=== PATIENT | female | born 2005 | race Caucasian/White ===

== ENCOUNTER 2025-03-04 04:06 | Emergency (ER) | payer SELFPAY ==
[2025-03-04 04:07] VITALS: BP 119/85; PULSE 75; RESP 20; TEMP 36.1; O2SAT 96
--- NOTE | 2025-03-04 04:12 | ED.SKABFB ---
HPI - Skin/Abscess/Foreign Bdy General Chief complaint: Skin/Abscess/Foreign Body Stated complaint: allergic reaction Time Seen by Provider: 03/04/25 04:11 Source: patient Mode of arrival: ambulatory Limitations: no limitations History of Present Illness HPI narrative: Patient is a 19-year-old female with generalized but small size amount of rash and hive since new addition of Lamictal. She was worried about the rash and wanted evaluation. She has an appointment today with the psychiatrist. MD complaint: rash Onset (ago): day(s) ( Three) Location: generalized Severity: mild Severity scale (1-10): 3 Quality: pruritic Pain Consistency: intermittent Relieving factors: none Exacerbating factors: none Context: new medication ( Lamictal) Associated symptoms: itching Treatments prior to arrival: none Related Data Home Medications ?Medication ?Instructions ?Recorded ?Confirmed ?Last Taken ?Type lamotrigine 25 mg tablet mg 03/04/25 Unknown History Allergies Allergy/AdvReac Type Severity Reaction Status Date / Time ceftriaxone (From Rocephin) Allergy Hives Verified 03/04/25 04:24 Review of Systems Review of Systems: All systems reviewed & are unremarkable except as noted in HPI and below Constitutional: Constitutional: Reports no additional constitutional complaints Eyes: Eyes: Reports no additional eye complaints ENT: Reports system reviewed and no additional complaints, except as documented Cardiovascular: Cardiovascular: Reports no additional cardiovascular complaints Respiratory: Respiratory: Reports no additional respiratory complaints Gastrointestinal: Gastrointestinal: Reports no additional gastrointestinal complaints Genitourinary: Genitourinary: Reports no additional female genitourinary complaints Musculoskeletal: Musculoskeletal: Reports no additional musculoskeletal complaints Integumentary/Breasts: Skin/Breast: Reports system reviewed and no additional complaints, except as docu Neurologic: Reports system reviewed and no additional complaints, except as documented Psychiatric: Psychiatric: Reports no additional psychiatric complaints Endocrine: Endocrine: Reports no additional endocrine complaints Hematologic/Lymphatic: Hematologic/Lymphatic: Reports no additional hematologic/lymphatic complaints Allergic/Immunologic: Allergic/Immunologic: Reports no additional allergic/immunologic complaints Exam Const: General: healthy appearing Nutritional Appearance: well nourished Orientation/consciousness: patient oriented x3 HENMT: Head: normal to inspection Ears: external ears normal Face/Nose/Sinus: Normal external nose present Eyes: Conjunctivae: conjunctivae normal Pupils: Equal, round and reactive pupils present EOM: EOMs intact bilaterally Neck: Neck: normal visual inspection Chest: Chest palpation & inspection: normal inspection of the chest Resp: Effort & Inspection: normal respiratory effort and not labored Auscultation: clear to auscultation bilaterally and no crackles Cardio: Rate: regular rate Rhythm: regular rhythm Heart sounds: no murmurs GI: Inspection: non-distended GI Palp: Yes Soft to palpation and No Tenderness to palpation present (GI) Auscultation: normal bowel sounds : General: Yes bladder normal to palpation Back/Spine/Pelvis: Back: no CVA tenderness Skin: General skin exam: normal color Rashes: rash noted Wounds: no wounds Other: generalized arms and legs and right armpit have small areas of patchy erythema and excoriation with swelling tissue and some macular papular areas Neuro: General: patient oriented x3, moves all extremities, no meningeal signs, no focal motor deficits and CN's II-XI intact bilaterally Extrem: General: normal to inspection and no clubbing, cyanosis or edema Psych: Mental Status: mental status grossly normal Affect: normal affect Attitude: cooperative Course Vital Signs Vital signs: Vital Signs Temperature 36.1 C L 03/04/25 04:07 Pulse Rate 75 03/04/25 04:07 Respiratory Rate 20 03/04/25 04:07 Blood Pressure 119/85 03/04/25 04:07 Pulse Oximetry 96 03/04/25 04:07 Oxygen Delivery Room Air 03/04/25 04:07 Temperature 36.1 C L 03/04/25 04:07 Pulse Rate 75 03/04/25 04:07 Respiratory Rate 20 03/04/25 04:07 Blood Pressure 119/85 03/04/25 04:07 Pulse Oximetry 96 03/04/25 04:07 Oxygen Delivery Room Air 03/04/25 04:07 MDM - Skin/Abscess/Foreign Bdy MDM Narrative Medical decision making narrative: patient is a 19-year-old female with generalized rash secondary to recent Lamictal addition. She will talk to the psychiatrist today about Lamictal medicine changes needed. Prednisone. Desonide cream. Discharge Plan Discharge Clinical Impression: Allergic reaction to drug Qualifiers: Encounter type: initial encounter Qualified Code(s): T78.40XA - Allergy, unspecified, initial encounter Patient Disposition: Home Condition: Stable Instructions: General Allergic Reaction (ED) Additional Instructions: please discuss with your psychiatrist today about stopping the Lamictal due to an allergy possibility and starting a new medication. Patient Language: Romanian Prescriptions: New desonide 0.05 % cream 1 applic topical DAILY PRN (Reason: itching) Qty: 15 0RF prednisone 20 mg tablet 40 mg PO DAILY 2 Days Qty: 4 0RF No Action lamotrigine 25 mg tablet Follow-up/Referrals: UNKNOWN,DOCTOR [Primary Care Provider] Time of Disposition: 04:25
== END 2025-03-04 04:43 | disposition home or self-care (01) ==
PROVIDERS: Emergency Provider Emergency Medicine
DX: T88.7XXA Unspecified adverse effect of drug or medicament, initial encounter (principal); T42.6X5A Adverse effect of other antiepileptic and sedative-hypnotic drugs, initial encounter
CPT/HCPCS: 99283; J7512

== ENCOUNTER 2025-05-13 17:56 | Emergency (ER) | payer OTHER, SELFPAY ==
--- OUTSIDE RECORDS SUMMARY | 2025-04-15 09:30 | XMS_ITS ---
Author Organization [facility] [email or web address] [facility] Address [address] [facility] [address] [place] [address] Care Team Providers Care Field Supervisor Seed Production Name Role Phone Morgan ALONZO, Jessica Primary Care Provider Jorge Hearn Unavailable [phone] REASON FOR VISIT 1 month f/u Social History Sex Assigned At : Social History Observation Description Sex Assigned At Female Encounters Encounter Location Date Provider Diagnosis [facility] [employer] [facility] [address] [facility] [address] [place] [address] 04/15/2025 Jorge Echevarria Plan Of Treatment Next Appt Details Provider Name:Jorge freed, 05/14/2025 02:30:00 PM, [address], [address], [place], [address], Progress Notes * CANDICE MCKNIGHTINDOB: 5 (19 yo F)Acc No.[id number]:04/15/2025 Patient: Adonis NACHO DERICK Provider: PAVITHRA MEREDITH :2005 A ge:19 Y S ex:Female Date:04/15/2025 Address:[address] [facility], [place], [place]-[address] Pcp:Jessica Mora MD Subjective: * Chief Complaints: * 1 month f/u Billing Information: * Procedure Codes: * Electronic signature of PAVITHRA Singleton on 05/13/2025 at 05:58 PM DITCH INSPECTOR Sign off status: Pending * Provider: PAVITHRA MEREDITH Date: Generated for Leena dubon/Aviva/Johanna on: 07/13/2024 05:58 PM DITCH INSPECTOR
--- NOTE | ~2025-05-13 | CT_ITS ---
CT abdomen pelvis w con INDICATION:Abdominal pain . COMPARISON: None. TECHNIQUE: Axial images of the abdomen and pelvis were obtained following infusion of 100 mL Isovue 300. Dose optimization technique was utilized. FINDINGS: The lung bases are clear. The liver parenchyma is unremarkable. No intrahepatic mass or ductal dilatation is evident. The gallbladder is unremarkable. The pancreas and spleen are normal in appearance. The adrenal glands are symmetric in size. The kidneys demonstrate symmetric uptake and excretion of contrast. No cystic mass is evident. There is no solid mass. There is no hydronephrosis. Evaluation of the stomach and bowel loops are limited due to lack of oral contrast. The appendix is not visualized. The bladder and rectum are normal. IUD is noted in the uterus. No free intraperitoneal fluid or air is evident. There is no significant retroperitoneal lymphadenopathy. The aorta, visceral vessels and renal arteries demonstrate normal caliber and patency. The lower thoracic and lumbar vertebrae are in normal alignment. IMPRESSION: No acute abnormality is noted in the abdomen and pelvis. All CT scans at this facility are performed using low dose modulation techniques as appropriate to perform exam including the following: automated exposure control; use of iterative reconstruction technique; adjustment of the mA and/or kV according to patient size (this includes techniques or standardized protocols for targeted exams where dose is matched to indication/reason for exam). Reviewed, dictated and finalized at location S. IAL EDUCATION PARAEDUCATOR IMPRESSION: No acute abnormality is noted in the abdomen and pelvis. All CT scans at this facility are performed using low dose modulation techniqu es as appropriate to perform exam including the following: automated exposure c ontrol; use of iterative reconstruction technique; adjustment of the mA and/or kV according to patient size (this includes techniques or standardized protocol s for targeted exams where dose is matched to indication/reason for exam).
--- OUTSIDE RECORDS SUMMARY | 2025-05-13 17:58 | XMS_ITS | Clinical Summary ---
Author Organization [facility] Address [address] [place] [phone] Care Team Providers Care Loss Prevention Coordinator Name Role Phone Jessica Mora MD Primary Care Pro vider Jeffery Don MD Unavailable [phone] Allergies Active Allergy Reactions Criticality Noted Date Comments Ceftriaxone Hives Medium 06/13/2020 Lamotrigine Hives,Itching Medium 03/07/2025 Medications hydrOXYzine (ATARAX) 25 mg tablet Take 1 tablet (25 mg total) by mouth every 8 (eight) hours as needed for anxiety 15 tablet 08/18/19 23 Active cholecalciferol (VITAMIN D-3) 2000 unit capsule Take 1 capsule (2,000 Units total) by mouth daily 05/03/20 23 Active sertraline (ZOLOFT) 100 mg tabletIndications: Encounter for general counseling and advice on contraceptive management Take 1 tablet (100 mg total) by mouth daily 06/12/20 23 Active omeprazole (PriLOSEC) 20 mg capsule Take 1 capsule (20 mg total) by mouth daily Active levonorgestreL (KYLEENA) IUD 1 each by intrauterine route once Active ibuprofen (ADVIL,MOTRIN) 800 mg tablet Take 1 tablet (800 mg total) by mouth every 8 (eight) hours as needed for pain 90 tablet 08/12/19 25 Active Additional Information Patient not taking.Reported on 03/07/2025 docusate sodium (DOK) 100 mg tabletIndications: constipation Take 1 tablet (100 mg total) by mouth 2 (two) times a day for 10 days 20 tablet 08/12/19 Active oxyCODONE (ROXICODONE) 5 mg immediate release tabletIndications: Pain Take 1 tablet (5 mg total) by mouth every 4 (four) hours as needed for pain 21 tablet 08/12/19 Active Additional Information Patient not taking.Reported on 03/07/2025 ondansetron ODT (ZOFRAN-ODT) 8 mg disintegrating tablet Take 1 tablet (8 mg total) by mouth every 8 (eight) hours as needed for nausea 20 tablet 08/13/19 25 Active Additional Information Patient not taking.Reported on 03/07/2025 HYDROcodone-acetam inophen (NORCO) 5-325 mg per tabletIndications: Pain Take 1 tablet by mouth every 6 (six) hours as needed for pain 20 tablet 08/13/19 Active Additional Information Patient not taking.Reported on 03/07/2025 multivit-min/iron/ folic acid/K (ADULTS MULTIVITAMIN ORAL) Take 1 capsule by mouth daily 10/06/19 Active clindamycin (CLEOCIN T) 1 % gelIndications:Acn e vulgaris Apply to face once daily. 180 g 1 02/07/20 25 026 Active Active Problems Problem Noted Date Diagnosed Date Annual physical exam 01/13/2025 Gastroesophageal reflux disease 09/20/2022 Assessment & Plan (05/11/2023 3:24 PM SAMPLE STEAMER): Discussed/given handout on lifestyle modification Consider adding pepcid at night if having persistent symptoms Assessment & Plan (09/20/2022 8:53 AM CDT): Improved Continue prilosec Discussed/given handout on lifestyle modification Constipation 09/07/2022 Assessment & Plan (05/11/2023 3:25 PM SAMPLE STEAMER): Uncontrolled Recommend high fiber diet Take colace daily Miralax as needed Assessment & Plan (11/24/2022 10:53 AM CDT): Add daily fiber supplement, if still persistent recommend colace daily miralax as needed Assessment & Plan (09/20/2022 8:56 AM CDT): Uncontrolled Advise daily stool softener miralax as needed for soft bowel movement daily to every other day In long run recommend increasing fiber, currently limited by bloating and increased satiety Assessment & Plan (09/07/2022 9:34 AM SAMPLE STEAMER): Likely due to gastroenteritis VSS, no acute distress noted Physical abdominal exam unremarkable Offered 8 mg zofran po one time in office; mother declined stating had this at home and would attempt there Encouraged bland diet, BRAT diet, anti-diarrheal OTC imodium 4 mg every 12 hours as needed Encouraged increased fluid intake Discussed that if abdominal pain worsens or blood in stool go to the ER If symptoms persist >1 week follow up with PCP Moderate episode of recurrent major depressive d isorder Assessment & Plan (04/03/2023 1:52 PM CDT): Following with psychiatry continue zoloft Assessment & Plan (11/24/2022 10:52 AM CDT): Stable Continue zoloft Assessment & Plan (09/20/2022 8:54 AM CDT): Following with psychiatry On zoloft Assessment & Plan (08/08/2022 3:20 PM SAMPLE STEAMER): Uncontrolled Increase celexa to 20mg MDQ positive, advise evaluation by psychiatrist, list [facility] Assessment & Plan (06/28/2022 12:44 PM SAMPLE STEAMER): States mood stable on celexa, denies suicidal ideation/self harm Continue celexa Assessment & Plan (01/31/2022 3:18 PM CDT): PHQ Screening PHQ-2 Total Score (If total score is 3 or more points, staff should administer the PHQ-9): 2 PHQ-9 Total Score: 10 Denies suicidal ideation Continue celexa Continue counseling ISSA (generalized anxiety disorder) Assessment & Plan (04/03/2023 1:52 PM CDT): Following with psychiatry continue zoloft Assessment & Plan (11/24/2022 10:52 AM CDT): Stable Continue zoloft Assessment & Plan (09/20/2022 8:54 AM CDT): Following with psychiatry On zoloft Assessment & Plan (08/08/2022 3:20 PM SAMPLE STEAMER): Uncontrolled Increase celexa to 20mg Assessment & Plan (01/31/2022 3:19 PM CDT): GAD7: 11 Continue 10mg celexa Resolved Problems Problem Noted Date Diagnosed Date Resolved Date Appendicitis 08/12/2024 01/13/2025 Acute viral conjunctivitis of both eyes 04/20/2022 04/03/2023 Assessment & Plan (04/20/2022 9:31 AM CDT): - suspect severe viral conjunctivitis but given appearance of erythema with white halo around iris and pt pain, concern for possible keratitis or iritis - ref pt to ophthalmology - called and obtained apt for pt today - f/u with ophtho Encounters Date Type Department Care Team Description 05/08/2025 Telephone [facility] Primary Care at [address] [place] [phone] Jessica Mora MD 03/12/2025 Telephone [facility] Primary Care at [address] [place] [phone] Jessica Mora MD 03/07/2025 4:00 PM CDT Office Visit [facility] Medicine Cardiology [address] [facility] 8th [place] [address] [place] [phone] Calin Mast MD Syncope, unspecified syncope type (Primary Dx) from Last 3 Months Immunizations Immunization Administration Dates Next Due COVID-19 mRNA (PFIZER) 0.3 m L (30 mcg) vaccine (12 years and up) 03/18/2023 DTaP 08/11/2009, 7,01/13/2006,11/01,2005 HPV9 11/18/2019,04/25/2019 Hep A, Pediatric 08/11/2009,01/25/2008 Hep B / HiB 07/12/2006 Hep B, Adolescent or Pediatric 2005,2004 HiB 11/06/2006,2005 IPV 08/11/2009, 6,2005,09/05 Influenza LAIV (Nasal) 04/19/2013,2011,03/19/2011,03/10 Influenza, Quadrivalent, Cynthia l Culture-based MDCK, Preservative Free, Antibiotic Free, Intramuscular 03/18/2023 Influenza, Quadrivalent, Spl it, Preservative Free, Intramuscular 05/03/2022,04/25/2019,04/25/2018,04/03 Influenza, Trivalent, Preser vative Free, Intramuscular 03/05/2024,04/09/2015,05/27/2014 MMR 08/11/2009,07/12/2006 Meningococcal B, OMV (Bexsero) 03/05/2024 Meningococcal Conjugate (Menveo) 03/05/2024 Meningococcal MCV4P (Menactra) 11/15/2016 Pneumococcal Conjugate PCV 13 11/06/2006 ,01/13/2006,2005,09/05 Tdap 11/15/2016 Varicella 08/11/2009,07/12/2006 Surgical History Surgery Date Site/Laterality Comments HAND SURGERY Left MOUTH SURGERY APPENDECTOMY 08/2024 Medical History Medical History Date Comments Anxiety Depression Cardiac abnormality Cardiac nerv e damage per employee wellness/fitness coordinator Bradycardia Family History Medical History Relation Name Comments No Known Problems Brother Hyperlipidemia Father Hypertension Father Hyperlipidemia Maternal Grandfather Hypotension Mother POT1 Sister Breast cancer Neg Hx Colon cancer Neg Hx Ovarian cancer Neg Hx Uterine cancer Neg Hx Relation Name Status Comments Brother Father Alive Maternal Grandfather Mother Alive Sister Social History Tobacco Use Types Packs/Day Years Used Date Smoking Tobacco: Never Smokeless Tobacco: Never Tobacco Cessation:Counseling Given: Not Answered AUDIT-C Answer Date Recorded Q1: How often do you have a drink containing alc ohol? Monthly or less 02/02/2023 Average Number of Drinks Not on file 023 Frequency of Binge Drinking Not on file 0808/2022 PHQ-2 Answer Date Recorded PHQ-2 Total Score (If total score is 3 or more points, staff should administer the PHQ-9) 0 02/06/2025 Personal Safety Answer Date Recorded Have you ever been in or are you currently in a harmful physical or emotional relationship or is someone making you feel afraid or unsafe? Denies 10/26/2024 Comments No Sex and Gender Information Value Date Recorded Sex Assigned at Not on file Legal Sex Female 3:07 PM CDT Gender Identity Female 12/10/2023 5:00 PM CDT Sexual Orientation Not on file Obstetrics History Para Term AB IAB SAB Ectopic Multiple Livin g Live Births 0 0 0 0 0 0 0 0 0 0 0 Comments Lmp: 12 Growth Chart Information Age Height Weight Bwsoab-wju-eglk th Percentile BMI Percentile Head Circum Head Circum Percentile Date 19 years 172.7 cm (5' 8) 62.6 kg (138 lb) 41.16%* 2024 19 years 170.2 cm (5' 7) 63.5 kg (139 lb 14.4 oz) 52.99%* 2024 19 years 170.2 cm (5' 7) 60.6 kg (133 lb 9.6 oz) 41.09%* 2024 19 years 170.2 cm (5' 7) 60.8 kg (134 lb) 42.42%* 2024 19 years 170.2 cm (5' 7) 59.9 kg (132 lb 0.9 oz) 38.34%* 2024 18 years 170.2 cm (5' 7) 59 kg (130 lb) 34.89%* 2023 18 years 170.2 cm (5' 7) 59.5 kg (131 lb 3.2 oz) 37.86%* 2023 18 years 172.7 cm (5' 8) 58.5 kg (129 lb) 26.70%* 2023 18 years 172.7 cm (5' 8) 58.1 kg (128 lb) 25.10%* 2023 17 years 172.7 cm (5' 8) 59.9 kg (132 lb) 34.31%* 2022 17 years 60.3 kg (133 lb) 2022 17 years 172.7 cm (5' 8) 60.2 kg (132 lb 11.2 oz) 36.44%* 2022 17 years 172.7 cm (5' 8) 59.2 kg (130 lb 8.2 oz) 32.28%* 2022 17 years 170.2 cm (5' 7) 59.6 kg (131 lb 4.8 oz) 42.54%* 2022 17 years 170.2 cm (5' 7) 58.9 kg (129 lb 12.8 oz) 40.33%* 2022 17 years 170.2 cm (5' 7) 59.1 kg (130 lb 6.4 oz) 42.52%* 2022 17 years 170.2 cm (5' 7) 57.5 kg (126 lb 12.2 oz) 34.68%* 2022 17 years 170.2 cm (5' 7) 57.2 kg (126 lb 3.2 oz) 33.56%* 2022 17 years 170.2 cm (5' 7) 59.1 kg (130 lb 4.7 oz) 42.88%* 2022 17 years 170.2 cm (5' 7) 60.1 kg (132 lb 6.4 oz) 47.50%* 2022 16 years 170.2 cm (5' 7) 60.8 kg (134 lb 0.6 oz) 51.47%* 2021 16 years 170.2 cm (5' 7) 98.1 kg (216 lb 4.3 oz) 97.41%* 2021 16 years 170.2 cm (5' 7) 62.7 kg (138 lb 3.2 oz) 60.01%* 2021 16 years 170.2 cm (5' 7) 59.7 kg (131 lb 9.6 oz) 47.44%* 2021 16 years 170.2 cm (5' 7) 59.4 kg (130 lb 14.4 oz) 46.41%* 2021 16 years 170.2 cm (5' 7) 61.3 kg (135 lb 3.2 oz) 55.88%* 2021 * [facility] (Girls, 2-20 Years) Last Filed Vital Signs Vital Sign Reading Time Taken Comments Blood Pressure 96/51 03/07/2025 4:10 PM CDT Pulse 66 03/07/2025 4:10 PM CDT Temperature 36.3 C (97.3 F) 02/06/2025 4:07 PM CDT Respiratory Rate 18 02/06/2025 4:07 PM CDT Oxygen Saturation 99% 03/07/2025 4:10 PM CDT Inhaled Oxygen Concentration - - Weight 62.6 kg (138 lb) 03/07/2025 4:10 PM CDT Height 172.7 cm (5' 8) 03/07/2025 4:10 PM CDT Body Mass Index 20.98 03/07/2025 4:10 PM CDT Plan of Treatment Health Maintenance Due Date Last Done Comments Pneumococcal vaccine <65 (1 of 1 - PPSV23, PCV20, or PCV21) 2024 11/06/2006, 01/13/2006, 2005, Additional history exists Meningococcal B Vaccine (2 o f 2 - Bexsero SCDM 2-dose series) 09/02/2024 03/05/2024 Covid-19 Vaccine (4 - 2024-2 6 season) 2025 03/18/2023, 02/02/2021, 01/12/2021 Influenza Vaccine (#1) 2025 , 03/18/2023, 05/03/2022, Additional history exists Chlamydia and Gonorrhea (GC/ CT) Screening 08/29/2025 08/29/2024 Regular Well Visit/Exam 18-64 08/29/2025 08/29/2024 Depression Screening 02/06/2026 02/06/2025, 04/03/2023, 04/03/2023, Additional history exists DTaP/Tdap/Td Vaccine (7 - Td or Tdap) 11/15/2026 11/15/2016, 08/11/2009, 11/06/2006, Additional history exists Hepatitis B Screening Completed 07/12/2006 , 2005, 2005 Varicella Vaccines Discontinued 08/11/2009, 07/12/2006 HPV Vaccines Completed 11/18/2019, 04/25/2019 Meningococcal Vaccine Completed 03/05/2024, 017 Hepatitis C Screening Completed 03/06/2024 Medical Devices Implanted Type Area Weblogic Administrator Device Identifier Shelf Expiration Date Model / Serial / Lot Iud Vagina Pins Left: Hand Procedures Procedure Name Priority Date/Time Associated Diagnosis Comments N. GONORRHOEAE/C. TRACHOMATIS AMPLIFICATION Routine 08/29/2024 8:50 AM SAMPLE STEAMER Vaginal discharge HEPATITIS C ANTIBODY Routine 03/06/2024 7:42 AM CDT Annual physical exam from Last 3 Months or Most Recently Relevant to Health Maintenance Results * N. gonorrhoeae/C. trachomatis Amplification Vaginal (08/29/2024 8:50 AM SAMPLE STEAMER) C. trachomatis Not Detected [facility] Comment:Testing performed by : [facility], [address] [place]., [address] N. gonorrhoeae Not Detected [facility] Comment: Interpretive Data This assay detects Chlamydia trachomatis and Neisseria gonorrhoeae by nucleic acid amplification testing (NAAT). This assay has been cleared by the [place] Food and Drug administration. The performance characteristics of this test have been verified by the [facility] Molecular Infectious Disease laboratory. The performance characteristics of this test have not been evaluated in individuals less than 14 years of age. Current Interpretive Data was last revised on 2023. Testing performed by: [facility], [address] [place]., [address] Vaginal 08/29/2024 8:50 AM SAMPLE STEAMER 08/29/2024 7:43 PM SAMPLE STEAMER us Yane Alexis CNM LAB MICROBIOLOGY - GENERAL OR DERABLES Final Result [facility] [address] [facility] Department [place] [address] [facility] * Hepatitis C antibody Blood (03/06/2024 7:42 AM CDT) Hep C Ab Nonreactive Nonreactive Comment: Antibodies to HCV not detected. Does NOT exclude the possibility of recent exposure to HCV. Current interpretive data was last revised on 22 Interpretive Data Nonreactive: Antibodies to HCV not detected. Does NOT exclude the possibility of recent exposure to HCV. Equivocal: Equivocal for HCV antibodies. Supplemental molecular testing will be automatically performed to determine infection status in accordance with current CDC screening recommendations. Reactive: Positive for HCV antibodies. This may represent current or past HCV infection. Supplemental molecular testing will be automatically performed to determine current infection status in accordance with current CDC screening recommendations. Interpretive data was last revised on 2019. Blood 03/06/2024 7:42 AM CDT 03/06/2024 12:30 PM CDT Jessica Mora MD LAB MICROBIOLOGY - GENERAL ORDERABLES Final Result [facility] [address] [facility] Department [place] [address] from Last 3 Months or Most Recently Relevant to Health Maintenance Insurance [facility] Advance Directives For more information, please contact: [phone] * Full Code (Latest Code Status on File) Date Activated Date Inactivated Comments 08/12/2024 5:23 PM 08/13/2024 2:47 PM Care Teams Loss Prevention Coordinator Relationship Specialty Start Date End Date Jessica Mora MD PCP - General Family Medicine 01/31/22 Jeffery Don MD [address] [place] [address] Consulting Physician General Surgery 08/12/24
--- OUTSIDE RECORDS SUMMARY | 2025-05-13 17:58 | XMS_ITS | Clinical Summary ---
Author Organization [facility] Address [address] [place] [address] Care Team Providers Care Product Safety Coordinator Name Role Phone Jessica Mora MD Primary Care Provider [phone] Allergies Active Allergy Reactions Criticality Noted Date Comments Ceftriaxone Hives Low 06/13/2020 Medications Multiple Vitamin (MULTIVITAMIN ADULT OR) Take 1 tablet by mouth daily. Active sertraline (ZOLOFT) 100 MG tablet Take 1 tablet (100 mg total) by mouth daily. Active omeprazole (PRILOSEC) 20 MG capsule Take 1 capsule (20 mg total) by mouth daily. Active pseudoephedrine ER (SUDAFED) 120 MG 12 hr tablet Take 1 tablet (120 mg total) by mouth every 12 (twelve) hours. 28 tablet 02/28/2024 Active fluticasone propionate (FLONASE) 50 MCG/ACT nasal spray 1 spray by Each Nostril route daily. 18.2 mL 02/28/2024 Active Active Problems No known active problems Immunizations Immunization Administration Dates Next Due PFIZER COVID-19 (ORIGINAL FO RMULATION, PURPLE CAP) mRNA, LNP-S, PF, 30 MCG/0.3 ML DOSE 01/12/2021 Family History Medical History Relation Comments Hypertension Father Diabetes Paternal Aunt Diabetes Paternal Grandfather Relation Status Comments Father Alive Paternal Aunt Alive Paternal Grandfather Alive Social History Tobacco Use Types Packs/Day Years Used Date Smoking Tobacco: Never Smokeless Tobacco: Never Tobacco Cessation:Counseling Given: No Alcohol Use Standard Drinks/Week Comments Never 0 (1 standard drink = 0.6 oz pur e alcohol) Comments No Sex and Gender Information Value Date Recorded Sex Assigned at Not on file 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 Gender Identity Not on file Sexual Orientation Not on file Last Filed Vital Signs Vital Sign Reading Time Taken Comments Blood Pressure 109/71 02/28/2024 4:28 PM CDT Pulse 99 02/28/2024 4:28 PM CDT Temperature 36.8 C (98.2 F) 02/28/2024 4:28 PM CDT Respiratory Rate 16 02/28/2024 4:28 PM CDT Oxygen Saturation 100% 02/28/2024 4:28 PM CDT Inhaled Oxygen Concentration - - Weight 56.7 kg (125 lb) 02/28/2024 4:28 PM CDT Height 170.2 cm (5' 7) 02/28/2024 4:28 PM CDT Body Mass Index 19.58 02/28/2024 4:28 PM CDT Body Mass Index Percentile 24.49% 02/28/2024 4:2 8 PM CDT Growth Chart: CDC (Girls, 2- 20 Years) Plan of Treatment Health Maintenance Due Date Last Done Comments Annual Physical 2008 HPV Vaccines (1 - 3-dose series) 2020 Meningococcal B Vaccine (1 o f 2 - Standard) 2021 Hepatitis C 2023 DTaP, Tdap and Td Vaccines ( 1 - Tdap) 2024 Hepatitis B Vaccines (1 of 3 - 19+ 3-dose series) 2024 COVID-19 Vaccine (4 - 2024-2 6 season) 2025 03/18/2023, 02/02/2021, 01/12/2021 Influenza Adult (#1) 2025 03/18/2023, 05/03/2022 Hepatitis A Vaccines Aged Out No long er eligible based on patient's age to complete this topic Meningococcal Vaccine Aged Out No roland cooper eligible based on patient's age to complete this topic Pneumococcal Vaccine: Pediatrics (0 to 5 Years) and At-Risk Patients (6 to 49 Years) Aged Out No longer eligible b ased on patient's age to complete this topic RSV Immunizations Under 20 Months Aged Out No longer eligible b ased on patient's age to complete this topic Medical Devices Implanted Type Area Oil Processing Technician Device Identifier Shelf Expiration Date Model / Serial / Lot Countersink F/ Fix Screwa 2.0/2.3 Dental Implanted:Qty: 1 on 01/29/2021 by Nicholas Jenkins MD at [facility] Left: Finger MEDARTIS [id number] / / Gold 2.0 Cortex Bone Screw Implanted:Qty: 1 on 01/29/2021 by Nicholas Jenkins MD at [facility] Left: Finger MEDARTIS [id number] / / Gold 1.2mm Cortex Bone Screw Implanted:Qty: 1 on 01/29/2021 by Nicholas Jenkins MD at [facility] Left: Finger MEDARTIS [id number] / / Gold 1.2 Mm Coretx Bone Screw Implanted:Qty: 1 on 01/29/2021 by Nicholas Jenkins MD at [facility] Left: Finger MEDARTIS A-[id number] / / Gols 1.2mm Cortex Bone Screw Implanted:Qty: 1 on 01/29/2021 by Nicholas Jenkins MD at [facility] Left: Finger MEDARTIS [id number] / / Explanted Type Area Oil Processing Technician Device Identifier Shelf Expiration Date Model / Serial / Lot K Wire 3.5mm Explanted:Qty: 1 on 01/29/2021 by Nicholas Jenkins MD at [facility] Left: Finger [id number] / / Insurance Member Subscriber Plan / Payer (Ef fective 2024-Present) Name:Marion Mcclain Relation to Subscriber:Self Name:Marion Mcclain Payer ID:[id number] (NAIC) Group ID:Not on file Type:Indemnity Address: [facility] [place] [id number] Care Teams Product Safety Coordinator Relationship Specialty Start Date End Date Jessica Mora MD [address] [place] [id number] PCP - General FAMILY PRACTICE 04/18/22
--- OUTSIDE RECORDS SUMMARY | 2025-05-13 17:59 | XMS_ITS | Patient Health Record ---
Author Organization [facility] Address [address] [facility] [address] [place] [address] Care Team Providers Care Hand Cell Tuber Name Role Phone Morgan ALONZO, Jessica Primary Care Provider Jorge Hearn Unavailable [phone] Allergies No Known Allergies Reason For Referral No Information Medications Medication SIG (Take, Route, Frequency, Duration) Notes Start Date End Date Status Trintellix 10 MG Tablet 1 tablet Orally Once a day; Duration: 90 days 03/27/2025 Active Omeprazole 20 MG Capsule Delayed Release Oral 10/05/2022 Active Multivitamin Adults Tablet Oral 10/05/2022 Active Kyleena 19.5 MG Intrauterine Device as directed Intrauterine Active Trintellix 10 MG Tablet 1 tablet Orally Once a day; Duration: 30 days 04/16/2025 Active hydrOXYzine HCl 25 MG Tablet 1 tablet Oral twice a day; Duration: 30 days As needed 04/16/2025 Active Social History Tobacco Use: Social History Observation Description Date Details (start date - stop date) Never Smoker NA - NA Sex Assigned At : Social History Observation Description Sex Assigned At Female Social History Household: Social Info Question Answer Notes Household Marital status: single Number of adults in household: 2 Number of children in household: 2 Level of education: not finished college current ly in college Drug/Alcohol: Social Info Question Answer Notes Drugs Have you used drugs other than those for medical reasons in the past 12 months? No Benzodiazapines? No AUDIT (2018 Edition) How often do you have a drink con taining alcohol? Never Total Score 0 Interpretation Alcohol Education Tobacco Use: Social Info Question Answer Notes Tobacco Control (Standard) Tobacco use: Nonsmoker Problems Problem Type SNOMED Code ICD Code Onset Dates Problem Status W/U Status Risk Notes Problem Mild recurrent major depression (82494139) Major depressive disorder, recurrent, mild (F33.0) Active confirmed Problem Generalized anxiety disorder (19075083) Generalized anxiety disorder (F41.1) Active confirmed Problem Panic disorder (269614144) Panic disorder [episodic paroxysmal anxiety] without agoraphobia (F41.0) Active confirmed Vital Signs Heart Rate 85 /min 04/16/2025 Height-cm 167.64 cm 04/16/2025 Blood pressure diastolic 69 mm Hg 04/16/2025 Weight-kg 61.24 kg 04/16/2025 BMI Percentile 51.29 % 04/16/2025 Height 66 in 04/16/2025 Blood pressure systolic 100 mm Hg 04/16/2025 Weight 135 lbs 04/16/2025 BMI 21.79 kg/m2 04/16/2025 Encounters Encounter Location Date Provider Diagnosis [facility] [place] [id number] [facility] [address] [address] 11/04/2024 Jorge Echevarria Generalized anxiety disorder F41.1 ; Panic disorder [episodic paroxysmal anxiety] without agoraphobia F41.0 ; Major depressive disorder, recurrent, mild F33.0 and Encounter for screening for cardiovascular disorders Z13.6 [facility] [address] [address] 02/04/2025 Jorge Echevarria Generalized anxiety disorder F41.1 ; Panic disorder [episodic paroxysmal anxiety] without agoraphobia F41.0 and Major depressive disorder, recurrent, mild F33.0 [facility] [place] [address] [facility] [address] [address] 03/04/2025 Jorge Echevarria Generalized anxiety disorder F41.1 ; Panic disorder [episodic paroxysmal anxiety] without agoraphobia F41.0 ; Major depressive disorder, recurrent, mild F33.0 and Generalized skin eruption due to drugs and medicaments taken internally L27.0 [facility] [address] [facility] [address] [address] 03/25/2025 Jorge Echevarria Generalized anxiety disorder F41.1 ; Panic disorder [episodic paroxysmal anxiety] without agoraphobia F41.0 and Major depressive disorder, recurrent, mild F33.0 [facility] [address] [place] [address] [place] [address] 04/16/2025 Jorge Echevarria Generalized anxiety disorder F41.1 ; Panic disorder [episodic paroxysmal anxiety] without agoraphobia F41.0 and Major depressive disorder, recurrent, mild F33.0 [facility] [address] [place] [address] [place] [address] 12/20/2024 Jorge Echevarria [place] [address] [place] [place] [address] 12/20/2024 Jorge Echevarria Assessments Encounter Date Diagnosis (ICD Code) Assessment Notes Treatment Notes Treatment Clinical Notes Section Notes 11/04/2024 Generalized anxiety disorder (ICD-10 - F41.1) 11/04/2024 Panic disorder [episodic paroxysmal anxiety] without agoraphobia (ICD-10 - F41.0) 02/04/2025 Generalized anxiety disorder (ICD-10 - F41.1) 03/04/2025 Generalized anxiety disorder (ICD-10 - F41.1) 03/04/2025 Panic disorder [episodic paroxysmal anxiety] without agoraphobia (ICD-10 - F41.0) 03/25/2025 Generalized anxiety disorder (ICD-10 - F41.1) 04/16/2025 Generalized anxiety disorder (ICD-10 - F41.1) 04/16/2025 Panic disorder [episodic paroxysmal anxiety] without agoraphobia (ICD-10 - F41.0) 03/25/2025 Panic disorder [episodic paroxysmal anxiety] without agoraphobia (ICD-10 - F41.0) 02/04/2025 Panic disorder [episodic paroxysmal anxiety] without agoraphobia (ICD-10 - F41.0) 03/04/2025 Major depressive disorder, recurrent, mild (ICD-10 - F33.0) monitor. Lamotrigine stopped r/t skin rash. Will allow rash to resolve prior to initiating another medication. 11/04/2024 Major depressive disorder, recurrent, mild (ICD-10 - F33.0) 03/04/2025 Generalized skin eruption due to drugs and medicaments taken internally (ICD-10 - L27.0) went to ER. Monitor. stopped lamotrigine 02/04/2025 Major depressive disorder, recurrent, mild (ICD-10 - F33.0) 04/16/2025 Major depressive disorder, recurrent, mild (ICD-10 - F33.0) 03/25/2025 Major depressive disorder, recurrent, mild (ICD-10 - F33.0) monitor. Lamotrigine stopped r/t skin rash. Will allow rash to resolve prior to initiating another medication. Electronic Prior Authorization was requested for Trintellix 10 MG Tablet. Provider can order medication once approval received. 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 Major Depressive Disorder Assessment: Patient reports improvement in mood since last visit in October 2022, with sertraline dose increased to 100 mg daily. She describes experiencing mood fluctuations but notes overall improvement. No current suicidal ideation; past history of self-harm mentioned. Patient reports good self-esteem and confidence. Seasonal pattern noted, with mood worsening in fall. No current concerns with depression reported. Plan: - Continue sertraline 100 mg PO daily for depression and anxiety - Follow up in 3 months Generalized Anxiety Disorder Assessment: Patient reports no current concerns with anxiety. Hydroxyzine is available as needed for panic attacks, though rarely used. Patient discontinued regular counseling sessions as per therapist's recommendation due to improvement. Plan: - Continue hydroxyzine as needed for panic attacks Cardiovascular Issues Assessment: Patient reports recent diagnosis of a cardiovascular condition, possibly involving nerve damage in the heart. Symptoms include passing out when overheated, lightheadedness when climbing stairs, and feeling of body rushing. History of tachycardia noted. Patient wore a heart monitor for 1-2 months and reports elevated troponin levels. Awaiting heart ultrasound at next cardiology appointment. Plan: - Encourage follow-up with food service assistant for ongoing management and scheduled heart ultrasound the note is transcribed using speech recognition software. It is a reflection of a visit with the patient. It might have some inaccuracy, including medication names and transcribing errors, though efforts have been made to correct them. 02/04/2025 Other [place] Boxed Warning: Lamotrigine can cause serious rashes requiring hospitalization and discontinuation of this medication. Rash severity varies but includes a risk for Jaquez-Jc syndrome. The incidence of Jaquez-Jc syndrome in the pediatric population is 0.3% to 0.8% and 0.03% to 0.08% in adult populations. The number of cases associated with toxic epidermal necrolysis is too low to report an estimated incidence. Nearly all cases of a rash occur 2 to 8 weeks after the initiation of lamotrigine. It should also bear mentioning that the discontinuation of lamotrigine may not prevent a rash from becoming life-threatening. Patient education should include continuous monitoring of the rash for improvement after discontinuing the medication.[9][10 ] Other serious adverse effects include multi-organ sensitivity, hemophagocytic lymphohistiocytos is, blood dyscrasias, suicidal behavior/ideation s, aseptic meningitis, status epilepticus, and sudden unexplained in epilepsy.[11][12] Side Effects Nausea, vomiting Chest pain, back pain Xerostomia Edema Dysmenorrhea Weight changes Constipation Abdominal pain Pain, weakness Insomnia, drowsiness Dizziness, ataxia, diplopia. 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 Mood Instability Assessment: Patient reports frequent mood fluctuations with periods of depression lasting about a week, characterized by self-sabotaging behavior and social withdrawal. These alternate with periods of elevated mood, increased sociability, and potentially risky behavior. Previous trials of citalopram, fluoxetine, and sertraline have been ineffective. The patient discontinued sertraline due to perceived lack of efficacy. Given the cyclical nature of symptoms and inadequate response to SSRIs, a mood stabilizer may be more appropriate for symptom management. Plan: - Start lamotrigine - 25 mg PO daily for 14 days, then - 50 mg PO daily (as two 25 mg tablets) for at least 14 days - Advised patient to monitor for and report any new rash - Informed patient about potential severe adverse effect (Jaquez-Jc syndrome), though rare - Follow up to assess efficacy and consider dose adjustments Anxiety Assessment: Patient reports ongoing anxiety, previously treated with sertraline and hydroxyzine. Current stressors include recent relocation, starting a DEPARTMENT OF [employer] OFFICER program, and working full-time. Despite these stressors, the patient feels she is managing stress well mentally and emotionally, though noting possible physical manifestations. Plan: - Discontinue sertraline - Encourage ongoing use of stress-reduction techniques Hormonal Imbalance Assessment: Patient reports concerns about possible hormonal imbalance, attributing it to either stress or current control method. She expresses a desire to discontinue control. Plan: - Patient to follow up with primary care or gynecology for control management the note is transcribed using speech recognition software. It is a reflection of a visit with the patient. It might have some inaccuracy, including medication names and transcribing errors, though efforts have been made to correct them. 03/25/2025 Homero Mcknight, a patient with a history of bipolar disorder, presents with symptoms suggestive of a possible hypomanic episode, including increased impulsivity, risky behavior, and changes in mood and energy levels. Possible Hypomanic Episode Assessment: Patient reports increased impulsivity, engaging in risky behaviors (e.g., swimming in a river without proper planning), and changes in mood and energy levels. These symptoms suggest a possible shift towards hypomania or a mixed episode. The patient denies significant sleep disturbances or extreme irritability but acknowledges feeling more suggestible and acting on impulses that are out of character. There are also reports of racing thoughts and difficulty concentrating, particularly at work. The patient's self-esteem appears unchanged, and there are no reports of grandiosity. Previous medications (citalopram and Prozac) were reportedly ineffective in managing symptoms. Plan: - Start Trintellix 5 mg PO daily for one week, then increase to target dose - Provide samples of Trintellix - Monitor for improvement in mood stability and depressive symptoms - Educate patient on the mechanism of action of Trintellix as a serotonin modulator - Advise patient to report any worsening of symptoms or side effects the note is transcribed using speech recognition software. It is a reflection of a visit with the patient. It might have some inaccuracy, including medication names and transcribing errors, though efforts have been made to correct them. 04/16/2025 Homero Mcknight is being treated with Trintellix 5 mg for mood symptoms and reports feeling stable in the middle range without impulsivity, irritability, or depressive symptoms. Mood disorder on Trintellix Patient started on Trintellix 5 mg on March 25 and reports feeling stable, describing herself as right in the middle - neither hypomanic nor depressed. She denies current impulsivity, irritability, anger, or depressive symptoms including sadness and anhedonia. This stable mood has been present for approximately one week. Patient notes historical pattern of mood decline toward end of month, which may correlate with menstrual cycle. Current medication appears to be providing adequate mood stabilization. Plan: - Continue Trintellix 10 mg (patient appears to be on 10 mg based on clinician's statement so far we're doing okay with the 10 milligram) - Patient advised that pew-ie-medwu mood changes likely related to menstrual cycle timing - Copay card recommended for medication cost assistance due to $130 [id number] expense the note is transcribed using speech recognition software. It is a reflection of a visit with the patient. It might have some inaccuracy, including medication names and transcribing errors, though efforts have been made to correct them. Plan Of Treatment Next Appt Details Provider Name:Jorge freed, 05/14/2025 02:30:00 PM, [address], [facility] [address], [place], [address], Insurance Providers Payer Name Payer Address Payer Phone Subscriber Number Group Number Insured Name Patient Relationship to Insured Coverage Start Date Coverage End Date [facility] [address] [place] [address] [id number] HUY LIUDMILADEBORA [place] Child - Insured has Financial Responsibility Medical (General) History Medical History History ICD Code Problems: Attention deficit hyperactivit y disorder, combined type Generalized anxiety disorder undefined Mild recurrent major depression Panic attack , Imported from Highlights: e patient had two hospital encounters at [facility] in February 2024. On 02/24/2024, the patient was seen by Dr. Julio C Joseph MD, for an acute sore throat, fluid level behind the tympanic membrane of both ears, and a viral upper respiratory infection (URI). Four days later, on 02/28/2024, the patient was seen by Dr. Dominga Whaley DO, at the same hospital. The patient was diagnosed with acute bacterial sinusitis and fluid collection in the middle ear. The patient also had travel records on the same dates as the hospital encounters. Surgical History Surgery Date(Month/Year) appendix removed 2023
[2025-05-13 18:04] VITALS: BP 127/64; PULSE 75; RESP 18; TEMP 36.9; O2SAT 98
[2025-05-13] MEDS: SODIUM CHLORIDE 0.9% IV 1,000 ML 999 ML IV CONT (18:23)
[2025-05-13] MEDS: KETOROLAC 30 MG/ML VIAL (*BKC) IV PUSH (18:23)
[2025-05-13 18:26] LABS: Hematocrit 38.8 % (35.0-49.0); Hemoglobin 13.5 g/dL (12.0-15.0); Immature Granulocyte Percent A 0.4 % (0.0-0.0); Lymphocytes Absolute Auto 2.53 K/mm3 (1.10-4.50); Mean Corpuscular HGB Conc 34.8 g/dL (32-36); Mean Corpuscular Hemoglobin 29.7 pg (27.0-31.0); Mean Corpuscular Volume 85.5 fL (78.0-102.0); Nucleated Red Blood Cells Absolute Auto 0.00 K/mm3 (0.00-0.00); Nucleated Red Blood Cells Perc 0.0 % (0-0.0); Platelet Count Result 258 K/mm3 (150-420); Red Blood Count 4.54 M/mm3 (4.20-5.40); White Blood Count 6.9 K/mm3 (4.8-10.8)
[2025-05-13 18:36] LABS: Add Urine Microscopic? NO; Appearance Urine Clear (Clear); Glucose Urine UA Negative (Negative); Leukocyte Esterase Ur Negative LEU/UL (Negative); Nitrate Urine Negative (Negative); Specific Grav Ur 1.025 (1.010-1.020)
[2025-05-13 18:39] LABS: Alanine Aminotransferase 19 U/L (6-35); Albumin Level 5.3 g/dL (3.7-5.6); Alkaline Phosphatase 83 U/L (45-116); Anion Gap 11 mmol/L (4-12); Aspartate Amino Transferase 31 U/L (14-36); Blood Urea Nitrogen 16 mg/dL (8-21); Calcium 9.6 mg/dL (8.9-10.7); Carbon Dioxide 29 mmol/L (22-30); Chloride 106 mmol/L (98-107); Estimated CRCL calculation 95 ml/min; Estimated Glomerular Filt Rate > 60; Lipase 113 U/L (23-300); Osmolality Calculated 301 mOsm/kg (285-295); Potassium 3.4 mmol/L (3.4-5.0); Sodium 146 mmol/L (134-143); Total Protein 8.7 g/dL (6.3-8.6)
[2025-05-13 18:40] LABS: INR 1.0; Partial Thromboplastin Time 28.4 Sec (23.9-30.70); Prothrombin Time 10.9 Seconds (9.50-12.1)
[2025-05-13 18:43] LABS: Glucose 54 mg/dL (65-110)
[2025-05-13 18:43] LABS: Pregnancy On Board Control Positive
--- NOTE | 2025-05-13 19:24 | ED.ABDPAIN ---
HPI - Abdominal Pain General Chief Complaint: Abdominal Pain Stated Complaint: abdominal pain Time Seen by Provider: 05/13/25 18:00 Source: patient Mode of arrival: ambulatory Limitations: no limitations History of Present Illness HPI narrative: This is a 19-year-old female with no significant past medical history status post appendectomy presents with crampy abdominal pain just started her menstrual cycle/. With no fever chills no nausea or vomiting does have some constipation with no diarrhea no flank pain no dysuria or hematuria no chest pain or shortness of breath. MD elicited complaint: abdominal pain Pertinent past history: constipation Onset (ago): hour(s) Pain Consistency: constant Location: diffuse Severity: mild Quality: aching Related Data Home Medications ?Medication ?Instructions ?Recorded ?Confirmed ?Last Taken ?Type vortioxetine 10 mg tablet mg 05/13/25 Unknown History (Trintellix) Allergies Allergy/AdvReac Type Severity Reaction Status Date / Time ceftriaxone (From Rocephin) Allergy Hives Verified 05/13/25 18:03 Review of Systems Review of Systems: All systems reviewed & are unremarkable except as noted in HPI and below Exam Const: General: healthy appearing and no acute distress Nutritional Appearance: well nourished and thin Orientation/consciousness: patient oriented x3 Limitations: no limitations HENMT: Head: normal to inspection Neck: Neck: normal visual inspection and no lymphadenopathy Chest: Chest palpation & inspection: normal inspection of the chest Resp: Effort & Inspection: normal respiratory effort Auscultation: clear to auscultation bilaterally Cardio: Rate: regular rate Rhythm: regular rhythm GI: GI Palp: Yes Soft to palpation and Yes Tenderness to palpation present (GI) Auscultation: normal bowel sounds : General: Yes bladder normal to palpation Back/Spine/Pelvis: Back: no CVA tenderness Skin: General skin exam: normal color Rashes: no rashes Course Course Emergency Course: Medical decision making aorta of: The patient was evaluated by myself in the emergency department. History obtained from the patient was an independent historian and physical exam performed with his binders. Patient had blood work that was unremarkable with a normal white blood cell count did have abnormally low glucose level and was given something to eat along with juice and repeat glucose level is low. CT scan of the abdomen and pelvis performed and reviewed. Patient received IV fluids, UA was negative. Repeat assessment: Patient doing well on repeat exam with no acute distress Symptoms have improved since arrival to the emergency department. Vitals are stable Patient agrees with discussion and after shared medical decision-making and agrees with discharge. All questions answered to the patient's satisfaction Advised follow-up with primary within 3 to 5 days further evaluation treatment. impression dysmenorrhea condition stable disposition home Vital Signs Vital signs: Vital Signs Temperature 36.9 C 05/13/25 18:04 Pulse Rate 75 05/13/25 18:04 Respiratory Rate 18 05/13/25 18:04 Blood Pressure 127/64 05/13/25 18:04 Pulse Oximetry 98 05/13/25 18:04 Oxygen Delivery Room Air 05/13/25 18:04 Temperature 36.9 C 05/13/25 18:04 Pulse Rate 70 05/13/25 19:44 Respiratory Rate 18 05/13/25 19:44 Blood Pressure 122/68 05/13/25 19:44 Pulse Oximetry 100 05/13/25 19:44 Oxygen Delivery Room Air 05/13/25 19:44 MDM - Abdominal Pain Lab Data 05/13/25 18:12 05/13/25 18:12 Labs: Lab Results 05/13/25 05/13/25 05/13/25 Range/Units 18:12 18:30 19:12 WBC 6.9 (4.8-10.8) K/mm3 RBC 4.54 (4.20-5.40) M/mm3 Hgb 13.5 (12.0-15.0) g/dL Hct 38.8 (35.0-49.0) % MCV 85.5 (78.0-102.0) fL MCH 29.7 (27.0-31.0) pg MCHC 34.8 (32-36) g/dL RDW 11.9 (11.6-14.4) % Plt Count 258 (150-420) K/mm3 MPV 10.9 (9.2-11.8) fl Immature Gran % (Auto) 0.4 H (0.0-0.0) % Neut % (Auto) 54.9 (50.0-70.0) % Lymph % (Auto) 36.7 (18.0-42.0) % [place] % (Auto) 6.0 (2.0-11.0) % Eos % (Auto) 1.6 (1.0-6.0) % Baso % (Auto) 0.4 (0.0-1.0) % Lymph # (Auto) 2.53 (1.10-4.50) K/mm3 [place] # (Auto) 0.41 (0.10-0.90) K/mm3 Eos # (Auto) 0.11 (0.02-0.50) K/mm3 Baso # (Auto) 0.03 (0.00-0.10) K/mm3 Abs Immat Gran (auto) 0.03 H (0.00-0.00) K/mm3 Absolute Neuts (auto) 3.78 (1.70-7.20) K/mm3 Absolute Nucleated RBC 0.00 (0.00-0.00) K/mm3 Nucleated RBC % 0.0 (0-0.0) % PT 10.9 (9.50-12.1) Seconds INR 1.0 APTT 28.4 (23.9-30.70) Sec Sodium 146 H (134-143) mmol/L Potassium 3.4 (3.4-5.0) mmol/L Chloride 106 (98-107) mmol/L Carbon Dioxide 29 (22-30) mmol/L Anion Gap 11 (4-12) mmol/L BUN 16 (8-21) mg/dL Creatinine 0.81 (0.7-1.0) mg/dL Estim Creat Clear Calc 95 ml/min Estimated GFR > 60 (59 - ) Glucose 54 L* (65-110) mg/dL POC Capillary Glucose 94 (65-105) mg/dl Calculated Osmolality 301 H (285-295) mOsm/kg Lactic Acid 0.9 (0.7-2.0) mmol/L Calcium 9.6 (8.9-10.7) mg/dL Total Bilirubin 2.0 H (0.2-1.3) mg/dL AST 31 (14-36) U/L ALT 19 (6-35) U/L Alkaline Phosphatase 83 (45-116) U/L Total Protein 8.7 H (6.3-8.6) g/dL Albumin 5.3 (3.7-5.6) g/dL Lipase 113 (23-300) U/L Urine Color Yellow (Yellow) Urine Appearance Clear (Clear) Urine pH 6.0 (5.0-8.0) Ur Specific [place] 1.025 H (1.010-1.020) Urine Protein Negative (Negative) Urine Glucose (UA) Negative (Negative) Urine Ketones Negative (Negative) Ur Blood (Man) Trace-intact H (Negative) Urine Nitrate Negative (Negative) Urine Bilirubin Negative (Negative) Urine Urobilinogen 0.2 (0.2-1.0) mg/dL Leukocyte Esterase Rfl Negative (Negative) ELLE/UL Urine Test Negative Imaging Data Radiologist's impression: ITS Impressions Abdomen/Pelvis CT 05/13/25 19:28 IMPRESSION: No acute abnormality is noted in the abdomen and pelvis. All CT scans at this facility are performed using low dose modulation techniques as appropriate to perform exam including the following: automated exposure control; use of iterative reconstruction technique; adjustment of the mA and/or kV according to patient size (this includes techniques or standardized protocols for targeted exams where dose is matched to indication/reason for exam). Critical Care Time Critical Care Time Critical Care Time: No Discharge Plan Discharge Clinical Impression: Dysmenorrhea Patient Disposition: Home Condition: Stable Instructions: Antibiotic Form, Dysmenorrhea (ED) Additional Instructions: Advised to take medication as prescribed and follow-up with primary care physician within the next 3 to 5 days for further evaluation and treatment. Patient Language: Kazakh Prescriptions: New naproxen 500 mg tablet 500 mg PO BID PRN (Reason: pain) Qty: 14 0RF No Action Trintellix 10 mg tablet Follow-up/Referrals: Michelle,Francoise [Other] Time of Disposition: 19:35
[2025-05-13 19:44] VITALS: BP 122/68; PULSE 70; RESP 18; O2SAT 100
--- NOTE | 2025-05-17 12:07 | PC.NURSE ---
preliminary blood cultures x2 reviewed. no growth in 24 hours
--- NOTE | 2025-05-18 12:08 | PC.NURSE ---
preliminary blood cultures x2 reviewed. no growth in 48 hours.
[2025-05-20 13:04] LABS: Bilirubin,Total 1.1 mg/dL (0.2-1.3)
--- NOTE | 2025-05-21 13:35 | PC.NURSE ---
final blood cultures x2 reviewed. no growth in 5 days. no change in plan of care
== END 2025-05-13 19:44 | disposition home or self-care (01) ==
PROVIDERS: Emergency Provider Emergency Medicine
DX: N94.6 Dysmenorrhea, unspecified (principal)
CPT/HCPCS: 36415; 74177; 80053; 81003; 81025; 82948; 83605; 83690; 85025; 85610; 85730; 87040; 96361; 96374; 99284; J1885; J7030; Q9967